=== PATIENT | male | born 1945 | race Two or more races ===

== ENCOUNTER 2023-03-24 11:14 | Inpatient (IN) | payer MEDICARE, OTHER ==
[2023-03-24] MEDS ORDERED: SODIUM CHLORIDE 0.9% 500 ML 500 ML IV STA (11:19)
--- NOTE | 2023-03-24 11:25 | ED ---
General Adult HPI - General Stated complaint: Syncope Time Seen by Provider: 03/24/23 11:14 Source: patient, RN notes reviewed, old records reviewed - History of Present Illness Initial comments: This 77-year-old male who presents emergency Department complaining that he passed out at the [employer]. Patient was sitting in a chair selling some anxiety his money passed out bystanders called EMS. Patient passed out a second time prior to arrival. According to EMS when they were transferring the patient to the stretcher he passed out a third time. Patient denies any chest pain difficulty breathing shortest breath per patient denies any headache patient denies numbness weakness. Patient denies any lightheadedness or dizziness. Patient states she's had no history of passing out. Patient denies any heart history. Patient states he is a diabetic. Patient denies any other symptoms at this time and in fact he states he feels pretty good right now lying in bed. - Related Data Allergies Allergy/AdvReac Type Severity Reaction Status Date / Time hay fever Allergy Unknown Uncoded 03/24/23 11:24 Childhood Review of Systems ROS Statement: Those systems with pertinent positive or pertinent negative responses have been documented in the HPI. ROS Other: All systems not noted in ROS Statement are negative. General Exam - General Exam Comments Initial Comments: GENERAL: Patient is well-developed and well-nourished. Patient is nontoxic and well- hydrated and is in no acute distress. ENT: Neck is soft and supple. No significant lymphadenopathy is noted. Oropharynx is clear. Moist mucous membranes. Neck has full range of motion without eliciting any pain. EYES: The sclera were anicteric and conjunctiva were pink and moist. Extraocular movements were intact and pupils were equal round and reactive to light. Eye lids were unremarkable. PULMONARY: Unlabored respirations. Good breath sounds bilaterally. No audible rales rhonchi or wheezing was noted. CARDIOVASCULAR: Patient is bradycardic at 40 beats minute ABDOMEN: Soft and nontender with normal bowel sounds. SKIN: Skin is clear with no lesions or rashes and otherwise unremarkable. NEUROLOGIC: Patient is alert and oriented x3. Cranial nerves II through XII are grossly intact. Motor and sensory are also intact. Normal speech, volume and content. Symmetrical smile. MUSCULOSKELETAL: Normal extremities with adequate strength and full range of motion. LYMPHATICS: No significant lymphadenopathy is noted PSYCHIATRIC: Normal psychiatric evaluation. 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 EKG shows a ventricular rhythm at 35 bpm QRS is a 58 QT interval is 541 and QTC is 443. Patient's EKG shows no ST segment elevation or depression Was pt. sent in by a medical professional or institution (, PA, STRUCTURAL DRAFTSMAN, urgent care, hospital, or retirement...) When possible be specific @ -No Did you speak to anyone other than the patient for history (EMS, parent, family, police, friend...)? What history was obtained from this source @ -EMS gave us the history because the patient was unable to because he had passed out 3 times Did you review nursing and triage notes (agree or disagree)? Why? @ -I reviewed and agree with nursing and triage notes Were old charts reviewed (outside hosp., previous admission, EMS record, old EKG, old radiological studies, urgent care reports/EKG's, retirement records)? Report findings @ -I reviewed prior charts prior lab work on the patient Differential Diagnosis (chest pain, altered mental status, abdominal pain women, abdominal pain men, vaginal bleeding, weakness, fever, dyspnea, syncope, headache, dizziness, GI bleed, back pain, seizure, CVA, palpatations, mental health, musculoskeletal)? @ -Differential Syncope: Valvular disease, hypertrophic cardiomyopathy, pulmonary embolism, tamponade, tachycardia, bradycardia, WA, hypovolemia, hemorrhage, dissection, anemia, intracranial hemorrhage, seizure, hypoglycemia, carbon monoxide poisoning, this is not meant to be an all-inclusive list. EKG interpreted by me (3pts min.). @ -As above X-rays interpreted by me (1pt min.). @ -Chest x-ray shows no significant acute abnormality CT interpreted by me (1pt min.). @ -None done U/S interpreted by me (1pt. min.). @ -None done What testing was considered but not performed or refused? (CT, X-rays, U/S, labs)? Why? @ -None What meds were considered but not given or refused? Why? @ -None Did you discuss the management of the patient with other professionals (professionals i.e. Dr., PA, STRUCTURAL DRAFTSMAN, lab, RT, psych nurse, social worker assistant, program counselor, teacher, sheriff's officer, case management social worker)? Give summary @ -I spoke with the [facility] see agreed to admit the patient. I spoke with Dr. Murrieta he agreed to take the patient to the [facility] for a temporary pacemaker Was smoking cessation discussed for >3mins.? @ -No Was critical care preformed (if so, how long)? @ -No Were there social determinants of health that impacted care today? How? (Homelessness, low income, unemployed, alcoholism, drug addiction, transportation, low edu. Level, literacy, decrease access to med. care, halfway, rehab)? @ -No Was there de-escalation of care discussed even if they declined (Discuss DNR or withdrawal of care, Hospice)? DNR status @ -No What co-morbidities impacted this encounter? (DM, HTN, Smoking, COPD, CAD, Cancer, CVA, ARF, Chemo, Hep., AIDS, mental health diagnosis, sleep apnea, morbid obesity)? @ -None Was patient admitted / discharged? Hospital course, mention meds given and route, prescriptions, significant lab abnormalities, going to OR and other pertinent info. @ -Patient's heart rate remained between 35 and 40 patient was not hypotensive while he was in the emergency department and felt at his baseline as long she was lying down. Undiagnosed new problem with uncertain prognosis? @ -No Drug Therapy requiring intensive monitoring for toxicity (Heparin, Nitro, Insulin, Cardizem)? @ -No Were any procedures done? @ -No Diagnosis/symptom? @ -Symptomatic bradycardia Acute, or Chronic, or Acute on Chronic? @ -Acute Uncomplicated (without systemic symptoms) or Complicated (systemic symptoms)? @ -Complicated Side effects of treatment? @ -No Exacerbation, Progression, or Severe Exacerbation? @ -No Poses a threat to life or bodily function? How? (Chest pain, [place], [place], pneumonia, PE, COPD, DKA, ARF, appy, cholecystitis, CVA, Diverticulitis, Homicidal, Suicidal, threat to staff... and all critical care pts) @ -Yes this can lead to poor perfusion and an organ dysfunction Diagnosis/symptom? @ -Syncope Acute, or Chronic, or Acute on Chronic? @ -Acute Uncomplicated (without systemic symptoms) or Complicated (systemic symptoms)? @ -Complicated Side effects of treatment? @ -none Exacerbation, Progression, or Severe Exacerbation] @ -no Poses a threat to life or bodily function? @ -no - Lab Data Result diagrams: 03/24/23 11:26 03/24/23 11:26 Lab Results 03/24/23 03/24/23 03/24/23 Range/Units 11:26 11:26 11:26 WBC 6.9 (3.8-10.6) k/uL RBC 4.07 L (4.30-5.90) m/uL Hgb 13.6 (13.0-17.5) gm/dL Hct 41.3 (39.0-53.0) % MCV 101.4 H (80.0-100.0) fL MCH 33.3 (25.0-35.0) pg MCHC 32.9 (31.0-37.0) g/dL RDW 12.3 (11.5-15.5) % Plt Count 159 (150-450) k/uL MPV 8.7 Neutrophils % 71 % Lymphocytes % 18 % Monocytes % 6 % Eosinophils % 3 % Basophils % 0 % Neutrophils # 4.9 (1.3-7.7) k/uL Lymphocytes # 1.2 (1.0-4.8) k/uL Monocytes # 0.4 (0-1.0) k/uL Eosinophils # 0.2 (0-0.7) k/uL Basophils # 0.0 (0-0.2) k/uL PT 10.2 (9.0-12.0) sec INR 1.0 (<1.2) APTT 22.6 (22.0-30.0) sec Sodium 139 (137-145) mmol/L Potassium 4.1 (3.5-5.1) mmol/L Chloride 102 (98-107) mmol/L Carbon Dioxide 28 (22-30) mmol/L Anion Gap 9 mmol/L BUN 22 H (9-20) mg/dL Creatinine 1.21 (0.66-1.25) mg/dL Est GFR (CKD-EPI)AfAm 67 (>60 ml/min/1.73 sqM) Est GFR (CKD-EPI)NonAf 58 (>60 ml/min/1.73 sqM) Glucose 220 H (74-99) mg/dL Calcium 8.7 (8.4-10.2) mg/dL Magnesium 2.2 (1.6-2.3) mg/dL Total Bilirubin 0.5 (0.2-1.3) mg/dL AST 21 (17-59) U/L ALT 15 (4-49) U/L Alkaline Phosphatase 59 (38-126) U/L Total Protein 6.0 L (6.3-8.2) g/dL Albumin 3.6 (3.5-5.0) g/dL Disposition Clinical Impression: Symptomatic bradycardia, Syncope Disposition: ADMITTED IP TO THIS [facility] Referrals: Nonstaff,Physician [REFERRING] - 1-2 days Time of Disposition: 12:12
[2023-03-24 11:45] LABS: Basophils % (A) 0 %; Eosinophils # (A) 0.2 k/uL (0-0.7); Eosinophils % (A) 3 %; HCT 41.3 % (39.0-53.0); HGB 13.6 gm/dL (13.0-17.5); Lymphocytes # (A) 1.2 k/uL (1.0-4.8); Lymphocytes % (A) 18 %; MCH 33.3 pg (25.0-35.0); MCHC 32.9 g/dL (31.0-37.0); MCV 101.4 fL (80.0-100.0); Mean Platelet Volume 8.7; Monocytes # (A) 0.4 k/uL (0-1.0); Monocytes % (A) 6 %; Neutrophils # (A) 4.9 k/uL (1.3-7.7); Neutrophils % (A) 71 %; Platelet Count 159 k/uL (150-450); RBC 4.07 m/uL (4.30-5.90); RDW 12.3 % (11.5-15.5); WBC 6.9 k/uL (3.8-10.6)
[2023-03-24 12:00] LABS: Partial Thromboplastin Time 22.6 sec (22.0-30.0); Prothrombin Time 10.2 sec (9.0-12.0)
--- NOTE | 2023-03-24 12:03 | XR ---
EXAMINATION TYPE: XR chest 2V DATE OF EXAM: 03/24/2023 11:57 AM CLINICAL INDICATION:Male, 77 years old with history of dysrhythmia; COMPARISON: None TECHNIQUE: XR chest 2V Frontal and lateral views of the chest. FINDINGS: Lungs/Pleura: There is no evidence of pleural effusion, focal consolidation, or pneumothorax. Pulmonary vascularity: Unremarkable. Heart/mediastinum: Cardiomediastinal silhouette is enlarged and stable. Musculoskeletal: No acute osseous pathology. IMPRESSION: Cardiomegaly and mild pulmonary vascular congestion. Correlate with BNP for congestive heart failure.
[2023-03-24 12:07] LABS: ALT 15 U/L (4-49); AST 21 U/L (17-59); African American GFR (CKD) 67 (>60 ml/min/1.73 sqM); Albumin 3.6 g/dL (3.5-5.0); Alkaline Phosphatase 59 U/L (38-126); Anion Gap 9 mmol/L; Blood Urea Nitrogen 22 mg/dL (9-20); Calcium 8.7 mg/dL (8.4-10.2); Carbon Dioxide 28 mmol/L (22-30); Chloride 102 mmol/L (98-107); Glucose 220 mg/dL (74-99); Magnesium 2.2 mg/dL (1.6-2.3); Non-African American GFR(CKD) 58 (>60 ml/min/1.73 sqM); Potassium 4.1 mmol/L (3.5-5.1); Sodium 139 mmol/L (137-145); Total Bilirubin 0.5 mg/dL (0.2-1.3)
[2023-03-24] MEDS ORDERED: LIDOCAINE 1% INJ 10MG/ML (20 ML MDV) ONE (12:16)
[2023-03-24] MEDS ORDERED: SODIUM CHLORIDE 0.9% 1,000 ML IV ONE (12:27)
[2023-03-24] MEDS ORDERED: LIDOCAINE 1% INJ 10MG/ML (20 ML MDV) SQ ONE ×2 (12:39→12:40)
[2023-03-24] MEDS ORDERED: MIDAZOLAM 2 MG/2 ML VIAL IVP ONE (12:40)
--- NOTE | 2023-03-24 12:54 | P.PCN ---
Date of Procedure: 03/24/23 Operative Findings: Temporary pacemaker placement Performing physician Kb Murrieta M.D. Procedure performed 1. Successful placement of a transvenous venous temporary pacemaker in the RV 2. Ultrasound-guided access of the right common femoral vein Indication Severe bradycardia presented as syncope in this 77-year-old gentleman Approach Right common femoral vein Complication None Level of sedation Moderate sedation length of 10 minutes Procedure description After obtaining an informed consent the patient was brought to the cardiac wastewater analyst lab analyst. The right common femoral artery was cannulated using micropuncture technique under ultrasound guidance the micropuncture wire passed easily then I placed a 6-Guamanian 11 cm sheath in the right common femoral vein. Under fluoroscopy guidance the pacemaker wire with balloon tip was advanced all the way to the right ventricle and subsequently the balloon was deflated. Then the pacemaker was placed as a setup of 60 bpm and 2.5 of AMP. The patient tolerated the procedure very well Postprocedure management Hold any AV chapo xochitl agents Monitor the patient for the next 24-48 hours Consider permanent pacemaker if the patient remains bradycardic
--- NOTE | 2023-03-24 13:00 | P.CRDCN ---
History of Present Illness Consult date: 03/24/23 Chief complaint: Syncope History of present illness: The patient is a pleasant 77-year-old gentleman was no significant past medical history of any coronary artery disease or congestive heart failure or any cardiac arrhythmia and the perceived by a consumer electronics merchandiser in the past was brought to the hospital by ambulance after he did have an episode of syncope. The patient was at the [employer] earlier today when he was sitting on the chair and suddenly he lost his consciousness with no prodromal symptoms. He stated that he did have similar episodes 2 weeks ago. Ambulance was called and on the way to the hospital he did have another episode of syncope. No associated or prodromal symptoms. No chest pain or chest discomfort and no shor tness of breath and no dizziness or lightheadedness and no feeling of heart racing or fluttering or presyncope or syncope. He underwent further workup in the emergency department. The first troponin came in to be normal. The EKG showed what it seems to be junctional rhythm with RBBB morphology and heart rate in the 30s. I could not appreciate any P waves. The rest of the blood work including CBC and BNP came in to be unremarkable. TSH came in to be unremarkable. At home he was not on any AV chapo xochitl agents. With that being sedated the patient was brought to cardiac quality control lab tech where he underwent successful placement of transvenous temporary pacemaker from right femoral vein. He would be in the intensive care unit. We'll monitor the heart rate for the next 24-48 hours and avoid any AV chapo xochitl agents and obtain an echocardiogram. The examination is remarkable for stable blood pressure with a bradycardia and systolic murmur at the right and left upper sternal border Assessment Symptomatic bradycardia Syncope secondary to bradycardia Junctional rhythm with RBBB morphology Plan Avoid any AV chapo xochitl agents Obtain an echocardiogram was Doppler Thyroid dysfunction has been ruled out Monitor the electrolytes Consider permanent pacemaker if the patient remains bradycardic Past Medical History Past Medical History: Diabetes Mellitus History of Any Multi-Drug Resistant Organisms: None Reported Past Surgical History: No Surgical Hx Reported Past Psychological History: No Psychological Hx Reported Smoking Status: Never smoker Past Alcohol Use History: None Reported Medications and Allergies Allergies Allergy/AdvReac Type Severity Reaction Status Date / Time hay fever Allergy Unknown Uncoded 03/24/23 11:24 Childhood Physical Exam Vitals: Vital Signs Temp Pulse Pulse Resp BP Pulse Ox 03/24/23 12:15 32 L 20 115/65 95 03/24/23 11:29 35 L 03/24/23 11:16 96.9 F L 35 L 20 134/64 95 Intake and Output 03/23/23 03/24/23 03/24/23 22:59 06:59 14:59 Intake Total 100 Balance 100 Intake: IV 100 Other: Weight 89.811 kg Results 03/24/23 11:26 03/24/23 11:26 Cardiac Enzymes 03/24/23 03/24/23 Range/Units 11:26 11:26 AST 21 (17-59) U/L Troponin I <0.012 (0.000-0.034) ng/mL Coagulation 03/24/23 Range/Units 11:26 PT 10.2 (9.0-12.0) sec APTT 22.6 (22.0-30.0) sec CBC 03/24/23 Range/Units 11:26 WBC 6.9 (3.8-10.6) k/uL RBC 4.07 L (4.30-5.90) m/uL Hgb 13.6 (13.0-17.5) gm/dL Hct 41.3 (39.0-53.0) % Plt Count 159 (150-450) k/uL Comprehensive Metabolic Panel 03/24/23 Range/Units 11:26 Sodium 139 (137-145) mmol/L Potassium 4.1 (3.5-5.1) mmol/L Chloride 102 (98-107) mmol/L Carbon Dioxide 28 (22-30) mmol/L BUN 22 H (9-20) mg/dL Creatinine 1.21 (0.66-1.25) mg/dL Glucose 220 H (74-99) mg/dL Calcium 8.7 (8.4-10.2) mg/dL AST 21 (17-59) U/L ALT 15 (4-49) U/L Alkaline Phosphatase 59 (38-126) U/L Total Protein 6.0 L (6.3-8.2) g/dL Albumin 3.6 (3.5-5.0) g/dL Intake and Output 03/23/23 03/24/23 03/24/23 22:59 06:59 14:59 Intake Total 100 Balance 100 Intake: IV 100 Other: Weight 89.811 kg Patient Weight 03/25/23 06:59 Weight 89.811 kg 03/24/23 11:26 03/24/23 11:26
[2023-03-24] MEDS: SODIUM CHLORIDE 0.9% 1,000 ML IV SCH (13:10)
[2023-03-24 13:19] LABS: Glucose,Whole Blood 160 mg/dL (70-110)
[2023-03-24] MEDS ORDERED: MELATONIN 3 MG TABLET PO PRN (14:23)
[2023-03-24] MEDS ORDERED: MAG HYDROX/AL HYDROX/SIMETH 30 ML CUP PO PRN (14:23)
[2023-03-24] MEDS ORDERED: traMADol 50 MG TAB PO PRN (14:23)
[2023-03-24] MEDS ORDERED: NALOXONE 0.4 MG/ML 1 ML VIAL IV PRN (14:23)
[2023-03-24] MEDS ORDERED: ACETAMINOPHEN TAB 325 MG TAB PO PRN (14:23)
[2023-03-24] MEDS ORDERED: DEXTROSE 50% SYRINGE 50 ML IVP PRN ×2 (14:50)
--- NOTE | 2023-03-24 14:54 | P.HPIM ---
History of Present Illness H&P Date: 03/24/23 Chief Complaint: Syncopal episode * 77-year-old gentleman with past medical history significant for diabetes mellitus presents to the emergency department after a syncopal episode at [employer]. Patient had multiple episodes of syncope while at [employer] and EMS was called and patient was transferred to the emergency for further evaluation. Patient had no warning signs prior to passing out. Patient states he had similar episode a few days back. Patient denied any associated chest pain, shortness of breath, lightheadedness, palpitations or racing of the heart prior to passing out. * Workup initiated in ER included troponin which was normal, EKG obtained showed junctional rhythm with heart rate in 30s * Serum chemistry included normal CBC and see basic metabolic panel. TSH was within normal limits as well * Cardiology was contacted from ER and patient was emergently taken to [facility] for assessment of transvenous temporary pacer through right femoral vein * Patient was reassessed in medical ICU postprocedure, patient alert and oriented 4, daughter at bedside per daughter patient did have a little slurred speech. Patient does not have any other focal deficit. We will do a CT head to rule out acute intracranial process REVIEW OF SYSTEMS: Syncopal episode loss of consciousness CONSTITUTIONAL: No fever, no malaise, no fatigue. HEENT: No recent visual problems or hearing problems. Denied any sore throat. CARDIOVASCULAR: No chest pain, orthopnea, PND, no palpitations, no syncope. PULMONARY: No shortness of breath, no cough, no hemoptysis. GASTROINTESTINAL: No diarrhea, no nausea, no vomiting, no abdominal pain. NEUROLOGICAL: No headaches, no weakness, no numbness. HEMATOLOGICAL: Denies any bleeding or petechiae. GENITOURINARY: Denies any burning micturition, frequency, or urgency. MUSCULOSKELETAL/RHEUMATOLOGICAL: Denies any joint pain, swelling, or any muscle pain. ENDOCRINE: Denies any polyuria or polydipsia. PHYSICAL EXAMINATION: GENERAL: The patient is alert and oriented x3, HEENT: Pupils are round and equally reacting to light. EOMI. CARDIOVASCULAR: S1 and S2 present. No murmurs, rubs, or gallops. PULMONARY: Chest is clear to auscultation, no wheezing or crackles. ABDOMEN: Soft, nontender, nondistended, normoactive bowel sounds. No palpable organomegaly. MUSCULOSKELETAL: No joint swelling or deformity. EXTREMITIES: No cyanosis, clubbing, or pedal edema. NEUROLOGICAL: Gross neurological examination did not reveal any focal deficits. Face is symmetrical extraocular movement intact no garbled speech noted SKIN: No rashes. Past Medical History Past Medical History: Diabetes Mellitus History of Any Multi-Drug Resistant Organisms: None Reported Past Surgical History: No Surgical Hx Reported Past Psychological History: No Psychological Hx Reported Smoking Status: Never smoker Past Alcohol Use History: None Reported Medications and Allergies Allergies Allergy/AdvReac Type Severity Reaction Status Date / Time hay fever Allergy Unknown Uncoded 03/24/23 11:24 Childhood Physical Exam Vitals: Vital Signs Temp Pulse Pulse Resp BP Pulse Ox 03/24/23 12:15 32 L 20 115/65 95 03/24/23 11:29 35 L 03/24/23 11:16 96.9 F L 35 L 20 134/64 95 Intake and Output 03/23/23 03/24/23 03/24/23 22:59 06:59 14:59 Intake Total 100 Balance 100 Intake: IV 100 Other: Weight 89.811 kg Results CBC & Chem 7: 03/24/23 11:26 03/24/23 11:26 Labs: Abnormal Lab Results - Last 24 Hours (Table) 03/24/23 03/24/23 03/24/23 Range/Units 11:26 11:26 13:18 RBC 4.07 L (4.30-5.90) m/uL MCV 101.4 H (80.0-100.0) fL BUN 22 H (9-20) mg/dL Glucose 220 H (74-99) mg/dL POC Glucose (mg/dL) 160 H (70-110) mg/dL Total Protein 6.0 L (6.3-8.2) g/dL Assessment and Plan Assessment: Assessment and plan Syncopal episode secondary to bradycardia Junctional rhythm noted upon admission Diabetes mellitus type 2 * Consultations obtained from cardiology, patient is status post transvenous pacemaker placement * Patient transferred to ICU for close monitoring, continue telemetry monitoring, optimize electrolytes potassium and magnesium * Avoid AV chapo blocking agents * In regards to diabetes mellitus Accu-Cheks before meals at bedtime continue patient on correctional insulin, Lantus on hold to avoid hypoglycemia * CT head ordered to rule out intracranial process * CODE STATUS full code * Lovenox for DVT prophylaxis
--- NOTE | 2023-03-24 17:04 | CT ---
EXAMINATION TYPE: CT brain wo con DATE OF EXAM: 03/24/2023 COMPARISON: None HISTORY: ams, syncope CT DLP: 1130.4 mGycm Automated exposure control for dose reduction was used. FINDINGS: The ventricles, basal cisterns and sulci over the convexities are mildly enlarged but appropriate for the patient's age. No abnormal density is seen throughout the brain parenchyma and there is no acute intra or extra-axia l hemorrhage. The posterior fossa including the brainstem, fourth ventricle and cerebellar pontine angles are gross ly normal. The intraorbital contents appear normal and symmetric. Visualized paranasal sinuses and mastoid air cells are well aerated IMPRESSION: NO ACUTE BLEED OR MASS EFFECT. NO SIGNIFICANT ABNORMALITY SEEN.
[2023-03-24 17:47] LABS: Glucose,Whole Blood 129 mg/dL (70-110)
[2023-03-24] MEDS: INSULIN ASPART (NovoLOG) 100 UNIT/ML VIAL SQ SCH ×2 (18:10→20:23)
--- NOTE | 2023-03-24 19:13 | P.GSCN ---
History of Present Illness Consult date: 03/24/23 History of present illness: 77-year-old gentleman who had a syncopal episode today was brought in the hospital. He is found to be in third-degree heart block. Patient is at bedrest in the ICU and unable to urinate. The nursing staff has attempted to pass a catheter and has failed. We are asked see the patient. The patient's interviewed at the bedside and denies previous urologic problems. There's been no hematuria or dysuria infections and incontinence catheters problems with urination. He has never seen a urologist before Review of Systems All systems: negative - Constitutional Denies fever, Denies weight loss - EENT Eyes: denies blurred vision Ears, nose, mouth and throat: Denies dysphagia - Cardiovascular Denies chest pain, Denies shortness of breath - Respiratory Denies cough, Denies 7 - Gastrointestinal Reports as per HPI - Genitourinary Denies dysuria, Denies hematuria - Integumentary Denies rash, Denies unusual bruising - Neurological Denies headaches, Denies syncope - Hematologic/Lymphatic Denies easy bleeding, Denies easy bruising Past Medical History Past Medical History: Diabetes Mellitus History of Any Multi-Drug Resistant Organisms: None Reported Past Surgical History: No Surgical Hx Reported Past Psychological History: No Psychological Hx Reported Smoking Status: Never smoker Past Alcohol Use History: None Reported - Past Family History Father Additional Family Medical History / Comment(s): Brain tumor behind his eye, passed in early 70s Mother Additional Family Medical History / Comment(s): passed in her 90s Medications and Allergies Home Medications Medication Instructions Recorded Confirmed Type Cholecalciferol [Vitamin D3 (25 50 mcg PO DAILY 03/24/23 03/24/23 History Mcg = 1000 Iu)] Glimepiride [Amaryl] 4 mg PO BID 03/24/23 03/24/23 History Insulin Glargine,Hum.rec.anlog 10 units SQ HS 03/24/23 03/24/23 History [Lantus Solostar Pen] Linagliptin [Tradjenta] 5 mg PO DAILY 03/24/23 03/24/23 History Pentoxifylline [TRENtal] 400 mg PO TID-W/MEALS 03/24/23 03/24/23 History Rosuvastatin Calcium 5 mg PO DAILY 03/24/23 03/24/23 History Timolol 0.5% Ophth Gel Forming 1 applic RIGHT EYE DAILY 03/24/23 03/24/23 History [Timoptic-Xe 0.5% Gel Form] Allergies Allergy/AdvReac Type Severity Reaction Status Date / Time hay fever Allergy Unknown Uncoded 03/24/23 15:20 Childhood Surgical - Exam Vital Signs Temp Pulse Resp BP Pulse Ox 96.9 F L 35 L 20 134/64 95 03/24/23 11:16 03/24/23 11:16 03/24/23 11:16 03/24/23 11:16 03/24/23 11:16 - General well developed, well nourished, no distress - Eyes normal ocular movement, no icteric - ENT no hearing loss, no congestion - Neck no masses, trachea midline - Respiratory normal respiratory effort, clear to auscultation - Abdomen Abdomen: soft, non tender, no guarding, no rigid, no rebound - Integumentary no rash, no abnormal pigmentation - Neurologic no disoriented, no combative - Psychiatric oriented to time, oriented to person, oriented to place, speech is normal, memory intact Results - Labs 03/24/23 11:26 03/24/23 11:26 Abnormal Lab Results - Last 24 Hours (Table) 03/24/23 03/24/23 03/24/23 Range/Units 11:26 11:26 13:18 RBC 4.07 L (4.30-5.90) m/uL MCV 101.4 H (80.0-100.0) fL BUN 22 H (9-20) mg/dL Glucose 220 H (74-99) mg/dL POC Glucose (mg/dL) 160 H (70-110) mg/dL Total Protein 6.0 L (6.3-8.2) g/dL 03/24/23 Range/Units 17:46 RBC (4.30-5.90) m/uL MCV (80.0-100.0) fL BUN (9-20) mg/dL Glucose (74-99) mg/dL POC Glucose (mg/dL) 129 H (70-110) mg/dL Total Protein (6.3-8.2) g/dL Diabetes panel 03/24/23 Range/Units 11:26 Sodium 139 (137-145) mmol/L Potassium 4.1 (3.5-5.1) mmol/L Chloride 102 (98-107) mmol/L Carbon Dioxide 28 (22-30) mmol/L BUN 22 H (9-20) mg/dL Creatinine 1.21 (0.66-1.25) mg/dL Glucose 220 H (74-99) mg/dL Calcium 8.7 (8.4-10.2) mg/dL AST 21 (17-59) U/L ALT 15 (4-49) U/L Alkaline Phosphatase 59 (38-126) U/L Total Protein 6.0 L (6.3-8.2) g/dL Albumin 3.6 (3.5-5.0) g/dL Thyroid panel 03/24/23 Range/Units 11:26 TSH 2.880 (0.465-4.680) mIU/L Calcium panel 03/24/23 Range/Units 11:26 Calcium 8.7 (8.4-10.2) mg/dL Albumin 3.6 (3.5-5.0) g/dL Pituitary panel 03/24/23 Range/Units 11:26 Sodium 139 (137-145) mmol/L Potassium 4.1 (3.5-5.1) mmol/L Chloride 102 (98-107) mmol/L Carbon Dioxide 28 (22-30) mmol/L BUN 22 H (9-20) mg/dL Creatinine 1.21 (0.66-1.25) mg/dL Glucose 220 H (74-99) mg/dL Calcium 8.7 (8.4-10.2) mg/dL TSH 2.880 (0.465-4.680) mIU/L Adrenal panel 03/24/23 Range/Units 11:26 Sodium 139 (137-145) mmol/L Potassium 4.1 (3.5-5.1) mmol/L Chloride 102 (98-107) mmol/L Carbon Dioxide 28 (22-30) mmol/L BUN 22 H (9-20) mg/dL Creatinine 1.21 (0.66-1.25) mg/dL Glucose 220 H (74-99) mg/dL Calcium 8.7 (8.4-10.2) mg/dL Total Bilirubin 0.5 (0.2-1.3) mg/dL AST 21 (17-59) U/L ALT 15 (4-49) U/L Alkaline Phosphatase 59 (38-126) U/L Total Protein 6.0 L (6.3-8.2) g/dL Albumin 3.6 (3.5-5.0) g/dL Assessment and Plan Assessment: Impression: 3rd heart block with intensive care unit stay. Urinary retention and inability pass catheter Recommendations catheter passage.
--- NOTE | 2023-03-24 19:14 | P.PCN ---
Date of Procedure: 03/24/23 Preoperative Diagnosis: Urine retention Postoperative Diagnosis: Same Procedure(s) Performed: Difficult catheter placement with 14-Trinidadian coud Anesthesia: none Surgeon: Cl Genao Pathology: none sent Condition: stable Disposition: ICU Indications for Procedure: The patient is in the ICU and heart block. He is in urine retention. The nursing staff could not place a catheter Description of Procedure: The patient is prepped and draped sterilely. I first gently pass a 16-Trinidadian De Anda catheter and meet resistance in the bulbar urethra. It is mostly because he is probably having sphincter spasm as this is hurting him significantly. I then have the nurse assisting me, patient down. I then gently passed a 14- Trinidadian coud-tip catheter in the bladder with clear urine return Impression the difficulty catheter placement is due to sphincter spasm due to patient anxiety and discomfort. I was able to get a catheter in. He is on tamsulosin. The catheter can be removed when he is ambulating. He should urinate without difficulty.
[2023-03-24 20:12] LABS: Glucose,Whole Blood 124 mg/dL (70-110)
[2023-03-24] MEDS: NYSTATIN 100,000 UNIT/GM POWD 15 GM TOPICAL SCH (20:49)
[2023-03-24] MEDS: TAMSULOSIN 0.4 MG CAP.ER.24H PO SCH (20:49)
[2023-03-25 05:27] LABS: Basophils % (A) 0 %; Eosinophils # (A) 0.1 k/uL (0-0.7); Eosinophils % (A) 2 %; HCT 42.6 % (39.0-53.0); HGB 14.5 gm/dL (13.0-17.5); Lymphocytes # (A) 0.8 k/uL (1.0-4.8); Lymphocytes % (A) 11 %; MCHC 33.9 g/dL (31.0-37.0); MCV 100.1 fL (80.0-100.0); Monocytes # (A) 0.5 k/uL (0-1.0); Monocytes % (A) 6 %; Neutrophils # (A) 6.1 k/uL (1.3-7.7); Neutrophils % (A) 80 %; Platelet Count 131 k/uL (150-450); RBC 4.26 m/uL (4.30-5.90); RDW 12.4 % (11.5-15.5); WBC 7.6 k/uL (3.8-10.6)
[2023-03-25 05:33] LABS: African American GFR (CKD) 81 (>60 ml/min/1.73 sqM); Anion Gap 5 mmol/L; Blood Urea Nitrogen 19 mg/dL (9-20); Calcium 8.7 mg/dL (8.4-10.2); Carbon Dioxide 28 mmol/L (22-30); Chloride 106 mmol/L (98-107); Glucose 108 mg/dL (74-99); Non-African American GFR(CKD) 70 (>60 ml/min/1.73 sqM); Potassium 3.9 mmol/L (3.5-5.1); Sodium 139 mmol/L (137-145)
[2023-03-25] MEDS: INSULIN ASPART (NovoLOG) 100 UNIT/ML VIAL SQ SCH ×4 (06:40→20:23)
[2023-03-25] MEDS: SODIUM CHLORIDE 0.9% 1,000 ML IV SCH (08:00)
--- NOTE | 2023-03-25 08:57 | P.PN ---
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 The patient was at the [employer] earlier today when he was sitting on the chair and suddenly he lost his consciousness with no prodromal symptoms. He stated that he did have similar episodes 2 weeks ago. Ambulance was called and on the way to the hospital he did have another episode of syncope. No associated or prodromal symptoms. No chest pain or chest discomfort and no shortness of breath and no dizziness or lightheadedness and no feeling of heart racing or fluttering or presyncope or syncope. He underwent further workup in the emergency department. The first troponin came in to be normal. The EKG showed what it seems to be junctional rhythm with RBBB morphology and heart rate in the 30s. I could not appreciate any P waves. The rest of the blood work including CBC and BNP came in to be unremarkable. TSH came in to be unremarkable. At home he was not on any AV chapo xochitl agents. With that being sedated the patient was brought to cardiac lab tech where he underwent successful placement of transvenous temporary pacemaker from right femoral vein. He would be in the intensive care unit. We'll monitor the heart rate for the next 24-48 hours and avoid any AV chapo xochitl agents and obtain an echocardiogram. The examination is remarkable for stable blood pressure with a bradycardia and systolic murmur at the right and left upper sternal border 03/25/2023 The patient was seen and evaluated this morning. He is feeling better. As a matter of fact he is overriding the pacemaker was a resting heart rate appeared to be in the 70s. He is in sinus rhythm now. 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 We will perform a bedside EKG for confirmation. The echo is still pending. He is asymptomatic and he is hemodynamically stable. TSH was checked and came in to be unremarkable. Examination is remarkable for regular rhythm with a systolic murmur at the right upper sternal border Assessment Symptomatic bradycardia Syncope secondary to bradycardia Junctional rhythm with RBBB morphology Plan Continue avoiding any AV chapo xochitl agents Start the patient on amlodipine to treat the blood pressure Follow-up with the patient Objective - Vital Signs Vital signs: Vital Signs Temp 98.3 F 03/25/23 04:00 Pulse 66 03/25/23 07:00 Resp 12 03/25/23 07:00 BP 150/80 03/25/23 07:00 Pulse Ox 98 03/25/23 07:00 FiO2 Intake & Output 03/24/23 03/25/23 03/25/23 18:59 06:59 18:59 Intake Total 580 520 Output Total 575 1460 Balance 5 -940 Weight 89.3 kg 89 kg Intake: IV 340 520 .9 20 R femoral sheath 100 260 Invasive Line 1 20 Sodium Chloride 0.9% 1, 120 260 000 ml @ 20 mls/hr IV . Q24H [facility] Rx#:[id number] Oral 240 Output: Urine 575 1460 Other: Voiding Method Urinal Indwelling Catheter External Catheter # Bowel Movements 0 - Labs CBC & Chem 7: 03/25/23 04:51 03/25/23 04:51 Labs: Abnormal Lab Results - Last 24 Hours (Table) 03/24/23 03/24/23 03/24/23 Range/Units 11:26 11:26 13:18 RBC 4.07 L (4.30-5.90) m/uL MCV 101.4 H (80.0-100.0) fL Plt Count (150-450) k/uL Lymphocytes # (1.0-4.8) k/uL BUN 22 H (9-20) mg/dL Glucose 220 H (74-99) mg/dL POC Glucose (mg/dL) 160 H (70-110) mg/dL Total Protein 6.0 L (6.3-8.2) g/dL 03/24/23 03/24/23 03/25/23 Range/Units 17:46 20:11 04:51 RBC 4.26 L (4.30-5.90) m/uL MCV 100.1 H (80.0-100.0) fL Plt Count 131 L (150-450) k/uL Lymphocytes # 0.8 L (1.0-4.8) k/uL BUN (9-20) mg/dL Glucose (74-99) mg/dL POC Glucose (mg/dL) 129 H 124 H (70-110) mg/dL Total Protein (6.3-8.2) g/dL 03/25/23 Range/Units 04:51 RBC (4.30-5.90) m/uL MCV (80.0-100.0) fL Plt Count (150-450) k/uL Lymphocytes # (1.0-4.8) k/uL BUN (9-20) mg/dL Glucose 108 H (74-99) mg/dL POC Glucose (mg/dL) (70-110) mg/dL Total Protein (6.3-8.2) g/dL
[2023-03-25] MEDS: ENOXAPARIN 40 MG/0.4 ML SYRINGE SQ SCH (10:33)
[2023-03-25] MEDS: NYSTATIN 100,000 UNIT/GM POWD 15 GM TOPICAL SCH ×3 (10:33→20:03)
[2023-03-25] MEDS: TAMSULOSIN 0.4 MG CAP.ER.24H PO SCH (10:33)
[2023-03-25 10:42] LABS: Glucose,Whole Blood 157 mg/dL (70-110)
[2023-03-25] MEDS: amLODIPine 2.5 MG TAB PO SCH (10:47)
--- NOTE | 2023-03-25 11:00 | CA ---
Transthoracic Echo Report Name: Cl Up Age: 77 Gender: M : 1945 Exam Date: 03/24/2023 13:39 Exam Location: [facility] Ht (in): 70 Wt (lb): 198 Ordering Physician: Kb Murrieta MD ([id number]) Attending/Referring Phys: Voip Network Engineer Phyllis López RDCS Procedure CPT: Indications: Bradycardia Cardiac Hx: temporary pacemaker Technical Quality: Fair Contrast 1: Total Dose (mL): Contrast 2: Total Dose (mL): MEASUREMENTS (Male / Female) Normal Values 2D ECHO LV Diastolic Diameter PLAX 4.7 cm 4.2 - 5.9 / 3.9 - 5.3 cm LV Systolic Diameter PLAX 3.0 cm IVS Diastolic Thickness 1.5 cm 0.6 - 1.0 / 0.6 - 0.9 cm LVPW Diastolic Thickness 1.4 cm 0.6 - 1.0 / 0.6 - 0.9 cm LV Relative Wall Thickness 0.6 RV Internal Dim ED PLAX 3.2 cm LA Systolic Diameter LX 3.9 cm 3.0 - 4.0 / 2.7 - 3.8 cm LV Diastolic Volume MOD 4C 90.7 cm??? LV Systolic Volume MOD 4C 47.0 cm??? LV Ejection Fraction MOD 4C 48.2 % LV Cardiac Index MOD 4C 2016.6 cm???/min???m??? LV Diastolic Length 4C 7.5 cm LV Systolic Length 4C 5.8 cm M-MODE Aortic Root Diameter MM 3.6 cm MV E Point Septal Separation 1.2 cm AV Cusp Separation MM 1.9 cm DOPPLER AV Peak Velocity 106.4 cm/s AV Peak Gradient 4.5 mmHg MV Area PHT 6.8 cm??? Mitral E Point Velocity 101.6 cm/s Mitral A Point Velocity 34.6 cm/s Mitral E to A Ratio 2.9 MV Deceleration Time 111.4 ms TV Peak Velocity 151.1 cm/s FINDINGS Left Ventricle Left ventricular ejection fraction is estimated at 50-55 %. Left ventricular cavity size normal. Moderately increased septal wall thickness. Right Ventricle Normal right ventricular size. Unable to estimate the right ventricular systolic pressure. Right Atrium Normal right atrial size. Left Atrium Normal left atrial size. Mitral Valve Structurally normal mitral valve. Mitral annular calcification. Aortic Valve Trileaflet aortic valve. No aortic valve stenosis or regurgitation. Aortic valve sclerosis. Tricuspid Valve Structurally normal tricuspid valve. No tricuspid regurgitation. Pulmonic Valve No pulmonic regurgitation. Structurally normal pulmonic valve. Pericardium No pericardial effusion. Aorta Normal size aortic root and proximal ascending aorta. CONCLUSIONS Normal LVEF Aortic sclerosis Previewed by: Dr. Kb Murrieta MD (Electronically Signed) Final Date: 25 March 2023 10:59
[2023-03-25 11:34] LABS: Glucose,Whole Blood 147 mg/dL (70-110)
--- NOTE | 2023-03-25 12:23 | P.PN ---
Subjective Progress Note Date: 03/25/23 * 77-year-old gentleman with past medical history significant for diabetes mellitus presents to the emergency department after a syncopal episode at [facility]. Patient had multiple episodes of syncope while at [facility] and EMS was called and patient was transferred to the emergency for further evaluation. Patient had no warning signs prior to passing out. Patient states he had similar episode a few days back. Patient denied any associated chest pain, shortness of breath, lightheadedness, palpitations or racing of the heart prior to passing out. * Workup initiated in ER included troponin which was normal, EKG obtained showed junctional rhythm with heart rate in 30s * Serum chemistry included normal CBC and see basic metabolic panel. TSH was within normal limits as well * Cardiology was contacted from ER and patient was emergently taken to laborer adjustable steel joist for assessment of transvenous temporary pacer through right femoral vein * Patient was reassessed in medical ICU postprocedure, patient alert and oriented 4, daughter at bedside per daughter patient did have a little slurred speech. Patient does not have any other focal deficit. We will do a CT head to rule out acute intracranial process * 03/25: Patient seen and evaluated and bedside, heart rate remained stable, seen by cardiology. Patient noted to have urinary retention from his De Anda catheter placed. Urology consulted Objective - Vital Signs Vital signs: Vital Signs Temp 98.8 F 03/25/23 08:00 Pulse 73 03/25/23 11:00 Resp 17 03/25/23 11:00 BP 127/72 03/25/23 11:00 Pulse Ox 92 L 03/25/23 11:00 FiO2 Intake & Output 03/24/23 03/25/23 03/25/23 18:59 06:59 18:59 Intake Total 580 520 320 Output Total 575 1460 200 Balance 5 -940 120 Weight 89.3 kg 89 kg Intake: IV 340 520 80 .9 20 R femoral sheath 100 260 80 Invasive Line 1 20 Sodium Chloride 0.9% 1, 120 260 000 ml @ 20 mls/hr IV . Q24H [facility] Rx#:[id number] Oral 240 240 Output: Urine 575 1460 200 Other: Voiding Method Urinal Indwelling Catheter Indwelling Catheter External Catheter # Bowel Movements 0 - Exam PHYSICAL EXAMINATION: GENERAL: The patient is alert and oriented x3, not in any acute distress. Well developed, well nourished. HEENT: Pupils are round and equally reacting to light. EOMI. No scleral icterus. No conjunctival pallor. Normocephalic, atraumatic. No pharyngeal erythema. No thyromegaly. CARDIOVASCULAR: S1 and S2 present. Anticardiolipin improved. , Transvenous pacemaker place right groin access PULMONARY: Chest is clear to auscultation, no wheezing or crackles. ABDOMEN: Soft, nontender, nondistended, normoactive bowel sounds. No palpable organomegaly. MUSCULOSKELETAL: No joint swelling or deformity. EXTREMITIES: No cyanosis, clubbing, or pedal edema. NEUROLOGICAL: Gross neurological examination did not reveal any focal deficits. SKIN: No rashes. - Labs CBC & Chem 7: 03/25/23 04:51 03/25/23 04:51 Labs: Abnormal Lab Results - Last 24 Hours (Table) 03/24/23 03/24/23 03/24/23 Range/Units 13:18 17:46 20:11 RBC (4.30-5.90) m/uL MCV (80.0-100.0) fL Plt Count (150-450) k/uL Lymphocytes # (1.0-4.8) k/uL Glucose (74-99) mg/dL POC Glucose (mg/dL) 160 H 129 H 124 H (70-110) mg/dL Hemoglobin A1c (<=6.0) % 03/25/23 03/25/23 03/25/23 Range/Units 04:51 04:51 04:51 RBC 4.26 L (4.30-5.90) m/uL MCV 100.1 H (80.0-100.0) fL Plt Count 131 L (150-450) k/uL Lymphocytes # 0.8 L (1.0-4.8) k/uL Glucose 108 H (74-99) mg/dL POC Glucose (mg/dL) (70-110) mg/dL Hemoglobin A1c 6.9 H (<=6.0) % 03/25/23 03/25/23 Range/Units 10:41 11:33 RBC (4.30-5.90) m/uL MCV (80.0-100.0) fL Plt Count (150-450) k/uL Lymphocytes # (1.0-4.8) k/uL Glucose (74-99) mg/dL POC Glucose (mg/dL) 157 H 147 H (70-110) mg/dL Hemoglobin A1c (<=6.0) % Assessment and Plan Assessment: Assessment and plan Syncopal episode secondary to bradycardia Junctional rhythm noted upon admission Diabetes mellitus type 2 Urinary retention * Consultations obtained from cardiology, patient is status post transvenous pacemaker placement pod 1 * Continue in ICU for close monitoring, continue telemetry monitoring, optimize electrolytes potassium and magnesium * Avoid AV chapo blocking agents * In regards to diabetes mellitus Accu-Cheks before meals at bedtime, continue sliding scale insulin, Lantus and oral hypoglycemic * CT head negative for acute intracranial process * In regards to urinary retention urology consulted, trial of voiding ordered continue patient on Flomax * CODE STATUS full code * Lovenox for DVT prophylaxis
[2023-03-25] MEDS: PENTOXIFYLLINE 400 MG TABLET.ER PO SCH ×2 (13:00→16:47)
[2023-03-25 16:05] LABS: Glucose,Whole Blood 134 mg/dL (70-110)
[2023-03-25 16:51] LABS: Glucose,Whole Blood 152 mg/dL (70-110)
[2023-03-25 20:12] LABS: Glucose,Whole Blood 132 mg/dL (70-110)
[2023-03-25] MEDS: INSULIN DETEMIR (LEVEMIR) 100 UNIT/ML SYR SQ SCH (20:23)
[2023-03-25] MEDS ORDERED: GLIMEPIRIDE 4 MG TAB PO SCH (21:00)
[2023-03-26 05:56] LABS: HCT 41.8 % (39.0-53.0); HGB 14.1 gm/dL (13.0-17.5); MCHC 33.7 g/dL (31.0-37.0); MCV 100.8 fL (80.0-100.0); Mean Platelet Volume 8.2; Platelet Count 124 k/uL (150-450); RBC 4.14 m/uL (4.30-5.90); RDW 12.2 % (11.5-15.5); WBC 7.3 k/uL (3.8-10.6)
[2023-03-26 06:10] LABS: African American GFR (CKD) 75 (>60 ml/min/1.73 sqM); Anion Gap 8 mmol/L; Blood Urea Nitrogen 19 mg/dL (9-20); Calcium 8.5 mg/dL (8.4-10.2); Carbon Dioxide 26 mmol/L (22-30); Chloride 104 mmol/L (98-107); Glucose 108 mg/dL (74-99); Non-African American GFR(CKD) 65 (>60 ml/min/1.73 sqM); Potassium 3.7 mmol/L (3.5-5.1); Sodium 138 mmol/L (137-145)
[2023-03-26 06:43] LABS: Glucose,Whole Blood 106 mg/dL (70-110)
[2023-03-26] MEDS: INSULIN ASPART (NovoLOG) 100 UNIT/ML VIAL SQ SCH ×4 (06:54→21:24)
[2023-03-26] MEDS: PENTOXIFYLLINE 400 MG TABLET.ER PO SCH ×4 (06:55→18:15)
[2023-03-26] MEDS ORDERED: ceFAZolin 1 GM in SODIUM CHLORIDE 0.9% IRRIG BTL 250 ML IRRIGATION PRN (07:00)
[2023-03-26] MEDS: ENOXAPARIN 40 MG/0.4 ML SYRINGE SQ SCH (08:35)
[2023-03-26] MEDS: TIMOLOL 0.5% OPHTH DROPS 5 ML BTL RIGHT EYE SCH (08:39)
[2023-03-26] MEDS: TAMSULOSIN 0.4 MG CAP.ER.24H PO SCH (10:38)
[2023-03-26] MEDS: amLODIPine 2.5 MG TAB PO SCH (10:39)
[2023-03-26] MEDS: ATORVASTATIN 10 MG TAB PO SCH (10:39)
[2023-03-26] MEDS: NYSTATIN 100,000 UNIT/GM POWD 15 GM TOPICAL SCH ×3 (12:00→21:22)
[2023-03-26] MEDS: SODIUM CHLORIDE 0.9% 1,000 ML IV SCH ×3 (12:00→20:40)
[2023-03-26 12:31] LABS: Glucose,Whole Blood 95 mg/dL (70-110)
--- NOTE | 2023-03-26 14:36 | P.PN ---
Subjective Progress Note Date: 03/26/23 This is a 77-year-old gentleman admitted with recurrent syncope-the first episode approximately 2 weeks ago, symptomatic bradycardia, junctional rhythm with heart rate in the 30s. Heart rates currently in the 70s.MAps 90s to 110s. Echocardiogram reported normal LV function, aortic sclerosis. Transvenous pacer placed. Permanent pacemaker pending. Denies chest pain, palpitations or shortness of breath. Maintaining O2 sats in the high 90s on 2 L nasal cannula. Objective - Vital Signs Vital signs: Vital Signs Temp 98.0 F 03/26/23 12:00 Pulse 75 03/26/23 13:00 Resp 13 03/26/23 13:00 BP 142/85 03/26/23 13:00 Pulse Ox 97 03/26/23 13:00 FiO2 Intake & Output 03/25/23 03/26/23 03/26/23 18:59 06:59 18:59 Intake Total 950 230 220 Output Total 580 1060 380 Balance 370 -830 -160 Weight 86.6 kg Intake: IV 240 230 220 .9 20 R femoral sheath 220 220 120 Invasive Line 3 10 Invasive Line 4 10 10 Sodium Chloride 0.9% 1, 100 000 ml @ 50 mls/hr IV . Q20H [facility] Rx#:[id number] Oral 710 Output: Urine 580 1060 380 Other: Voiding Method Indwelling Catheter Indwelling Catheter Indwelling Catheter - Exam PHYSICAL EXAM: VITAL SIGNS: As above GENERAL: Alert and oriented 3, Sitting up in bed, no acute distress HEENT: Conjunctivae normal. eyes normal. NECK: No JVD. CARDIOVASCULAR: S1, S2 regular. Positive systolic murmur RESPIRATION: Breath sounds diminished in the bases. ABDOMEN: Soft, nontender . No guarding. +BS. LEGS: No edema. no swelling NERVOUS SYSTEM: Cranial N 2-12 grossly normal. No focal deficits. Strength and sensation grossly intact. Skin: Warm and dry, no rash - Labs CBC & Chem 7: 03/26/23 04:14 03/26/23 04:14 Labs: Abnormal Lab Results - Last 24 Hours (Table) 03/25/23 03/25/23 03/25/23 Range/Units 16:04 16:49 20:11 RBC (4.30-5.90) m/uL MCV (80.0-100.0) fL Plt Count (150-450) k/uL Glucose (74-99) mg/dL POC Glucose (mg/dL) 134 H 152 H 132 H (70-110) mg/dL 03/26/23 03/26/23 Range/Units 04:14 04:14 RBC 4.14 L (4.30-5.90) m/uL MCV 100.8 H (80.0-100.0) fL Plt Count 124 L (150-450) k/uL Glucose 108 H (74-99) mg/dL POC Glucose (mg/dL) (70-110) mg/dL Assessment and Plan Assessment: Syncope secondary to symptomatic bradycardia, status post TVP placement Junctional rhythm heart rate in the 30s on admission Acute renal failure secondary to the above, improving Urinary retention, coude' catheter placed per urology Diabetes mellitus, A1c 6.9 Obstructive sleep apnea uses CPAP Plan: Continue on current medication regime ,monitoring and symptomatic treatment.NPO, PPM pending. Continue avoiding AV chapo blocking agents. The impression and plan of care has been dictated as directed. : I performed a history and examination of this patient, discussed the same with the dictator. I agree with the dictator's note ,documented as a scribe. Any additional findings or plans will be noted.
[2023-03-26] MEDS ORDERED: IOPAMIDOL-370 100ML BTL INJ ONE (14:59)
[2023-03-26] MEDS ORDERED: LIDOCAINE 1% INJ 10MG/ML (20 ML MDV) ONE ×2 (15:00)
[2023-03-26] MEDS ORDERED: fentaNYL (PF) 50 MCG/ML 2 ML AMP ONE (15:00)
[2023-03-26] MEDS ORDERED: HEPARIN SODIUM 1,000 UN/ML (10ML VL) ONE (15:00)
[2023-03-26] MEDS: fentaNYL (PF) 50 MCG/ML 2 ML AMP IVP ONE ×2 (15:06→15:21)
[2023-03-26] MEDS: MIDAZOLAM 2 MG/2 ML VIAL IVP ONE ×2 (15:06→15:21)
[2023-03-26] MEDS ORDERED: SODIUM CHLORIDE 0.9% 1,000 ML IV ONE (15:12)
[2023-03-26] MEDS ORDERED: LIDOCAINE 1% INJ 10MG/ML (20 ML MDV) SQ ONE ×2 (15:21→15:25)
[2023-03-26] MEDS ORDERED: LIDOCAINE 1% INJ 10MG/ML (30 ML VIAL-PF) SQ ONE (15:21)
[2023-03-26 17:53] LABS: Glucose,Whole Blood 83 mg/dL (70-110)
[2023-03-26 21:22] LABS: Glucose,Whole Blood 132 mg/dL (70-110)
[2023-03-26] MEDS: INSULIN DETEMIR (LEVEMIR) 100 UNIT/ML SYR SQ SCH (21:23)
--- NOTE | 2023-03-26 22:09 | P.PCN ---
Description of Procedure: CARDIOLOGY PROCEDURE NOTE Instructor Warper: Dr. Alex Cho Procedure performed: Insertion dual chamber permanent pacemaker Site: Left subclavian Indications: Syncope, symptomatic bradycardia, junctional rhythm HR in the 30's, sick sinus syndrome Complications: None Blood Loss: Minimal Description of Procedure: After the risks, benefits, and alternatives of the above-mentioned procedure was explained in detail with the patient, informed consent was obtained. The patient was taken to the cardiac catheterization suite where the left subclavian area was sterily prepped and draped in the usual fashion. One percent lidocaine was used to anesthetize the left subclavian area. Twenty milliliters of Isoview 370 contrast was injected into the left antecubital vein to allow for direct visualization of the left subclavian vein under fluoroscopy. A 1.5 inch incision was made utilizing a #15 blade in the left subclavian site. Hemostasis was made complete. Electrocautery along with digital blunt dissection was utilized to dissect to the level of the pectoralis muscle fascia and create a pocket large enough to accommodate the generator. A thin walled micro puncuture needle was used to cannulate the left subclavian vein. A guide-wire was inserted through the needle into the vascular lumen under fluoroscopic guidance. The needle was removed. Another thin walled micr puncture needle was used to again cannulate the left subclavian vein. A guide-wire was inserted through the needle into the vascular lumen under fluoroscopic guidance. The needle was removed and both guide-wires were attached to the field. A venous sheath and dilator were advanced over the guidewire into the vascular lumen under fluoroscopic guidance. The dilator and guidewire were then removed. A right ventricular bipolar lead was inserted into the sheath and advanced under fluoroscopic guidance into the right ventricle under fluoroscopic guidance. There were inadequate sensing and pacing thresholds with the 52cm lead and unable to reach the apex and therefore this was withdrawn and a 58cm lead was used for the RV lead. Apical parameters were inadequate and therefore moved to a more septal position with improved parameters. Adequate sensing and pacing thresholds were achieved and the lead was screwed into place in the RV apical septum. The sheath was then torn away. The lead collar was advanced and anchored into place utilizing #0 silk suture. Next, another venous sheath and dilator were advanced under fluoroscopic guidance into the vascular lumen over the guidewire. After removal of the dilator and guidewire, the 52cm bipolar lead was inserted into this sheath and advanced under fluoroscopic guidance into the right atrium. The lead was positioned into the right atrial appendage 4 times with similar poor pacing thresholds. Repositioning was attempted a number of times however given anticipated low need for atrial pacing, decision was made to take the best of the positions. The sheath was then torn away. The lead collar was advanced and anchored into place utilizing #0 silk suture. The leads were then inserted into the appropriate position into the generator. They were then secured with the setscrew provided. The leads and generator were inserted into the pocket with the leads posterior. The subcutaneous tissue was approximated utilizing #2.0 and 3.0 vicryl in an interrupted stitch fashion. The dermal layer was approximated utilizing #4.0 vicryl. The area was cleansed with sterile saline and dried. A sterile 4x4 dressing was applied and the patient was transferred to the post catheterization holding area in stable and satisfactory condition. The patient tolerated the procedure well. Generator Data Nursery Supervisor: [employer] Brand: [id number] Larisa XT DR MRI Model #: [id number] Serial#: [id number] Right Atrial Bipolar Lead Data: Type: Active fixation lead Nursery Supervisor: [employer] Model#: 5076-52 Serial Number: [id number] Right Ventricular Bipolar Lead Data: Type: Active fixation lead Nursery Supervisor: [employer] Model #: 5076-58 Serial #: [id number] Stimulation Thresholds: Right atrial bipolar lead pacing and sensing thresholds Voltage: 3.25 Pulse Width: 1.0 ms Impedance: 456 ohms P-wave sensin.3 mV Right Ventricular bipolar lead pacing and sensing thresholds Pulse Width: 0.4 ms Voltage: 0.5 volts Impedance: 437 ohms R-wave sensin.8 mV Parameter Setting: Pacing mode is DDDR Lower rate 55 bpm Upper rate 130 bpm Impressions: 1. Successful implantation of a dual chamber permanent pacemaker in the left pectoral site. Plan: 1. Routine post procedure care will be instituted as well as outpatient follow- up surveillance.
[2023-03-27 06:53] LABS: Glucose,Whole Blood 135 mg/dL (70-110)
[2023-03-27] MEDS: INSULIN ASPART (NovoLOG) 100 UNIT/ML VIAL SQ SCH ×4 (06:58→21:02)
[2023-03-27] MEDS: PENTOXIFYLLINE 400 MG TABLET.ER PO SCH ×3 (08:00→17:13)
[2023-03-27] MEDS: SODIUM CHLORIDE 0.9% 1,000 ML IV SCH ×4 (08:00→10:59)
[2023-03-27] MEDS ORDERED: ACETAMINOPHEN TAB 325 MG TAB PO PRN (09:48)
--- NOTE | 2023-03-27 10:50 | XR ---
EXAMINATION TYPE: XR chest 1V portable DATE OF EXAM: 03/27/2023 10:30 AM COMPARISON: Chest radiographs from 03/24/2023 TECHNIQUE: XR chest 1V portable Portable AP radiograph of the chest. CLINICAL INDICATION:Male, 77 years old with history of Lead placement check; FINDINGS: Lungs/Pleura: There is no evidence of pleural effusion, focal consolidation, or pneumothorax. Pulmonary vascularity: Unremarkable. Heart/mediastinum: Cardiomediastinal silhouette is enlarged and stable. Atherosclerotic calcificatio ns are seen in the aorta. Two lead cardiac conduction device overlying the left hemithorax with lead tips projecting over the right ventricle and right atrium. Musculoskeletal: No acute osseous pathology. IMPRESSION: Cardiomegaly with interval placement of two lead cardiac conduction device overlying the left hemitho rax with lead tips projecting over the right ventricle and right atrium.
[2023-03-27] MEDS: ATORVASTATIN 10 MG TAB PO SCH (10:58)
[2023-03-27] MEDS: TAMSULOSIN 0.4 MG CAP.ER.24H PO SCH (10:58)
[2023-03-27] MEDS: TIMOLOL 0.5% OPHTH DROPS 5 ML BTL RIGHT EYE SCH (11:00)
[2023-03-27] MEDS: NYSTATIN 100,000 UNIT/GM POWD 15 GM TOPICAL SCH ×3 (11:00→20:00)
[2023-03-27] MEDS: ENOXAPARIN 40 MG/0.4 ML SYRINGE SQ SCH (11:00)
[2023-03-27] MEDS: amLODIPine 2.5 MG TAB PO SCH (11:05)
[2023-03-27 11:40] LABS: Glucose,Whole Blood 154 mg/dL (70-110)
[2023-03-27 14:06] LABS: Basophils % (A) 0 %; Eosinophils % (A) 0 %; HCT 41.9 % (39.0-53.0); HGB 13.9 gm/dL (13.0-17.5); Lymphocytes # (A) 0.5 k/uL (1.0-4.8); Lymphocytes % (A) 5 %; MCH 33.7 pg (25.0-35.0); MCHC 33.3 g/dL (31.0-37.0); MCV 101.3 fL (80.0-100.0); Mean Platelet Volume 8.6; Monocytes # (A) 0.6 k/uL (0-1.0); Monocytes % (A) 6 %; Neutrophils # (A) 8.4 k/uL (1.3-7.7); Neutrophils % (A) 88 %; Platelet Count 113 k/uL (150-450); RBC 4.14 m/uL (4.30-5.90); RDW 12.2 % (11.5-15.5); WBC 9.6 k/uL (3.8-10.6)
[2023-03-27 14:18] LABS: African American GFR (CKD) 76 (>60 ml/min/1.73 sqM); Anion Gap 6 mmol/L; Blood Urea Nitrogen 21 mg/dL (9-20); Calcium 8.2 mg/dL (8.4-10.2); Carbon Dioxide 29 mmol/L (22-30); Chloride 99 mmol/L (98-107); Glucose 245 mg/dL (74-99); Non-African American GFR(CKD) 66 (>60 ml/min/1.73 sqM); Potassium 4.1 mmol/L (3.5-5.1); Sodium 134 mmol/L (137-145)
--- NOTE | 2023-03-27 14:51 | P.PN ---
Subjective Progress Note Date: 03/27/23 This is a 77-year-old gentleman admitted with recurrent syncope-the first episode approximately 2 weeks ago, symptomatic bradycardia, junctional rhythm with heart rate in the 30s. Heart rates currently in the 70s.MAps 90s to 110s. Echocardiogram reported normal LV function, aortic sclerosis. Transvenous pacer placed. Permanent pacemaker pending. Denies chest pain, palpitations or shortness of breath. Maintaining O2 sats in the high 90s on 2 L nasal cannula. 03/27/2023 status post dual chamber permanent pacemaker placement, wearing sling. Tolerated procedure well. Denies chest pain, palpitations or shortness of breath. Telemetry paced. Heart rates 70s to 80s. Denies nausea, vomiting. Feels hungry. Objective - Vital Signs Vital signs: Vital Signs Temp 97.8 F 03/27/23 12:00 Pulse 71 03/27/23 14:00 Resp 16 03/27/23 14:00 BP 113/58 03/27/23 14:00 Pulse Ox 92 L 03/27/23 14:00 FiO2 Intake & Output 03/26/23 03/27/23 03/27/23 18:59 06:59 18:59 Intake Total 620 600 850 Output Total 740 610 350 Balance -120 -10 500 Intake: IV 620 600 370 .9 20 R femoral sheath 120 Invasive Line 3 20 Sodium Chloride 0.9% 1, 350 600 350 000 ml @ 50 mls/hr IV . Q20H [facility] Rx#:[id number] Oral 480 Output: Urine 740 610 350 Other: Voiding Method Indwelling Catheter Indwelling Catheter Indwelling Catheter - Exam PHYSICAL EXAM: VITAL SIGNS: As above GENERAL: Alert and oriented 3, Sitting up in bed, no acute distress. HEENT: Normocephalic Conjunctivae normal. eyes normal. NECK: No JVD. Wearing sling. CARDIOVASCULAR: S1, S2 regular. Positive systolic murmur RESPIRATION: Breath sounds diminished in the bases. ABDOMEN: Soft, nontender . No guarding. +BS. LEGS: No edema. no swelling NERVOUS SYSTEM: Cranial N 2-12 grossly normal. No focal deficits. Strength and sensation grossly intact. Skin: Warm and dry, no rash - Labs CBC & Chem 7: 03/27/23 12:53 03/27/23 12:53 Labs: Abnormal Lab Results - Last 24 Hours (Table) 03/26/23 03/27/23 03/27/23 Range/Units 21:20 06:51 11:39 RBC (4.30-5.90) m/uL MCV (80.0-100.0) fL Plt Count (150-450) k/uL Neutrophils # (1.3-7.7) k/uL Lymphocytes # (1.0-4.8) k/uL Sodium (137-145) mmol/L BUN (9-20) mg/dL Glucose (74-99) mg/dL POC Glucose (mg/dL) 132 H 135 H 154 H (70-110) mg/dL Calcium (8.4-10.2) mg/dL 03/27/23 03/27/23 Range/Units 12:53 12:53 RBC 4.14 L (4.30-5.90) m/uL MCV 101.3 H (80.0-100.0) fL Plt Count 113 L (150-450) k/uL Neutrophils # 8.4 H (1.3-7.7) k/uL Lymphocytes # 0.5 L (1.0-4.8) k/uL Sodium 134 L (137-145) mmol/L BUN 21 H (9-20) mg/dL Glucose 245 H (74-99) mg/dL POC Glucose (mg/dL) (70-110) mg/dL Calcium 8.2 L (8.4-10.2) mg/dL Assessment and Plan Assessment: Syncope secondary to symptomatic bradycardia, status post TVP placement. Status post PPM implantation. Junctional rhythm heart rate in the 30s on admission Acute renal failure secondary to the above, improving Urinary retention, coude' catheter placed per urology Diabetes mellitus, A1c 6.9 Obstructive sleep apnea uses CPAP Plan: Continue on current medication regime ,monitoring and symptomatic treatment. Maintain supportive care. Discharge planning in progress pending final DC recommendations and clearance as per cardiology. The impression and plan of care has been dictated as directed. : I performed a history and examination of this patient, discussed the same with the dictator. I agree with the dictator's note ,documented as a scribe. Any additional findings or plans will be noted.
--- NOTE | 2023-03-27 14:53 | P.PN ---
Subjective Bradycardia The patient is a pleasant 77-year-old gentleman was no significant past medical history of any coronary artery disease or congestive heart failure or any cardiac arrhythmia and the perceived by a pivot maker in the past was brought to the hospital by ambulance after he did have an episode of syncope. The patient was at the [employer] earlier today when he was sitting on the chair and suddenly he lost his consciousness with no prodromal symptoms. He stated that he did have similar episodes 2 weeks ago. Ambulance was called and on the way to the hospital he did have another episode of syncope. No associated or prodromal symptoms. No chest pain or chest discomfort and no shortness of breath and no dizziness or lightheadedness and no feeling of heart racing or fluttering or presyncope or syncope. He underwent further workup in the emergency department. The first troponin came in to be normal. The EKG showed what it seems to be junctional rhythm with RBBB morphology and heart rate in the 30s. I could not appreciate any P waves. The rest of the blood work including CBC and BNP came in to be unremarkable. TSH came in to be unremarkable. At home he was not on any AV chapo xochitl agents. With that being sedated the patient was brought to cardiac computer laboratory technician where he underwent successful placement of transvenous temporary pacemaker from right femoral vein. He would be in the intensive care unit. We'll monitor the heart rate for the next 24-48 hours and avoid any AV chapo xochitl agents and obtain an e chocardiogram. The examination is remarkable for stable blood pressure with a bradycardia and systolic murmur at the right and left upper sternal border 03/25/2023 The patient was seen and evaluated this morning. He is feeling better. As a matter of fact he is overriding the pacemaker was a resting heart rate appeared to be in the 70s. He is in sinus rhythm now. 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 We will perform a bedside EKG for confirmation. The echo is still pending. He is asymptomatic and he is hemodynamically stable. TSH was checked and came in to be unremarkable. 03/27 Patient seen and examined. Patient underwent pacemaker placement yesterday without issues. Currently atrial sensed ventricular paced. Denies any chest pain or pressure. Still has De Anda catheter in. Still feels somewhat debilitated. No lightheadedness. Blood pressures been somewhat borderline. Echocardiogram showed ejection fraction 50-55% Assessment Symptomatic bradycardia s/p dual chamber PPM 03/27 Syncope secondary to bradycardia Junctional rhythm with RBBB morphology Plan Awaiting formal interrogation however appears to be working appropriately. Echo showed ejection fraction 50-55%. Discharge planning and likely is continue De Anda catheter. Stable for transfer out of ICU. Patient feeling debilitated and may need rehab. Objective - Vital Signs Vital signs: Vital Signs Temp 97.8 F 03/27/23 12:00 Pulse 71 03/27/23 14:00 Resp 16 03/27/23 14:00 BP 113/58 03/27/23 14:00 Pulse Ox 92 L 03/27/23 14:00 FiO2 Intake & Output 03/26/23 03/27/23 03/27/23 18:59 06:59 18:59 Intake Total 620 600 850 Output Total 740 610 350 Balance -120 -10 500 Intake: IV 620 600 370 .9 20 R femoral sheath 120 Invasive Line 3 20 Sodium Chloride 0.9% 1, 350 600 350 000 ml @ 50 mls/hr IV . Q20H [facility] Rx#:[id number] Oral 480 Output: Urine 740 610 350 Other: Voiding Method Indwelling Catheter Indwelling Catheter Indwelling Catheter - Labs CBC & Chem 7: 03/27/23 12:53 03/27/23 12:53 Labs: Abnormal Lab Results - Last 24 Hours (Table) 03/26/23 03/27/23 03/27/23 Range/Units 21:20 06:51 11:39 RBC (4.30-5.90) m/uL MCV (80.0-100.0) fL Plt Count (150-450) k/uL Neutrophils # (1.3-7.7) k/uL Lymphocytes # (1.0-4.8) k/uL Sodium (137-145) mmol/L BUN (9-20) mg/dL Glucose (74-99) mg/dL POC Glucose (mg/dL) 132 H 135 H 154 H (70-110) mg/dL Calcium (8.4-10.2) mg/dL 03/27/23 03/27/23 Range/Units 12:53 12:53 RBC 4.14 L (4.30-5.90) m/uL MCV 101.3 H (80.0-100.0) fL Plt Count 113 L (150-450) k/uL Neutrophils # 8.4 H (1.3-7.7) k/uL Lymphocytes # 0.5 L (1.0-4.8) k/uL Sodium 134 L (137-145) mmol/L BUN 21 H (9-20) mg/dL Glucose 245 H (74-99) mg/dL POC Glucose (mg/dL) (70-110) mg/dL Calcium 8.2 L (8.4-10.2) mg/dL
[2023-03-27 16:57] LABS: Glucose,Whole Blood 213 mg/dL (70-110)
[2023-03-27 20:16] LABS: Glucose,Whole Blood 138 mg/dL (70-110)
[2023-03-27] MEDS: INSULIN DETEMIR (LEVEMIR) 100 UNIT/ML SYR SQ SCH (21:00)
[2023-03-28 06:09] LABS: HCT 37.4 % (39.0-53.0); MCH 34.6 pg (25.0-35.0); MCHC 34.8 g/dL (31.0-37.0); MCV 99.6 fL (80.0-100.0); Mean Platelet Volume 8.4; Platelet Count 112 k/uL (150-450); RBC 3.76 m/uL (4.30-5.90); RDW 12.3 % (11.5-15.5); WBC 8.2 k/uL (3.8-10.6)
[2023-03-28 06:26] LABS: African American GFR (CKD) 57 (>60 ml/min/1.73 sqM); Anion Gap 6 mmol/L; Blood Urea Nitrogen 30 mg/dL (9-20); Calcium 8.6 mg/dL (8.4-10.2); Carbon Dioxide 30 mmol/L (22-30); Chloride 98 mmol/L (98-107); Glucose 97 mg/dL (74-99); Non-African American GFR(CKD) 49 (>60 ml/min/1.73 sqM); Potassium 3.9 mmol/L (3.5-5.1); Sodium 134 mmol/L (137-145)
[2023-03-28 07:09] LABS: Glucose,Whole Blood 95 mg/dL (70-110)
[2023-03-28] MEDS: PENTOXIFYLLINE 400 MG TABLET.ER PO SCH (07:09)
[2023-03-28] MEDS: INSULIN ASPART (NovoLOG) 100 UNIT/ML VIAL SQ SCH ×2 (07:11→12:54)
[2023-03-28] MEDS ORDERED: SODIUM CHLORIDE 0.9% 1,000 ML IV SCH (09:45)
[2023-03-28] MEDS: TAMSULOSIN 0.4 MG CAP.ER.24H PO SCH (09:54)
[2023-03-28] MEDS: NYSTATIN 100,000 UNIT/GM POWD 15 GM TOPICAL SCH (09:54)
[2023-03-28] MEDS: ATORVASTATIN 10 MG TAB PO SCH (09:54)
[2023-03-28] MEDS: ENOXAPARIN 40 MG/0.4 ML SYRINGE SQ SCH (09:55)
[2023-03-28] MEDS: TIMOLOL 0.5% OPHTH DROPS 5 ML BTL RIGHT EYE SCH (09:55)
[2023-03-28] MEDS: amLODIPine 2.5 MG TAB PO SCH (09:55)
[2023-03-28 11:01] VITALS: BP 101/51; PULSE 78; RESP 16; TEMP 98.3
--- NOTE | 2023-03-28 12:02 | P.DS ---
Providers Date of admission: 03/24/23 12:13 Expected date of discharge: 03/28/23 Attending physician: Duran Stark MD Consults: 03/24/23 12:13 Consult Physician Urgent Consulting Provider: Kb Murrieta Consult Reason/Comments: Symptomatic bradycardia Do you want consulting provider notified?: Yes 03/24/23 17:00 Consult Physician Urgent Consulting Provider: Cl Genao Consult Reason/Comments: Urinary Retention Do you want consulting provider notified?: Already Contacted Primary care physician: Adrienne Lucas Hospital Course: Syncope secondary to symptomatic bradycardia, status post TVP placement. Status post PPM implantation. Junctional rhythm heart rate in the 30s on admission Acute renal failure secondary to the above, improving Urinary retention, coude' catheter placed per urology, recently discontinued, spontaneously voiding Diabetes mellitus, A1c 6.9 Obstructive sleep apnea uses CPAP Hospital course:This is a 77-year-old gentleman admitted with recurrent syncope- the first episode approximately 2 weeks ago, symptomatic bradycardia, junctional rhythm with heart rate in the 30s. Heart rates currently in the 70s.MAps 90s to 110s. Echocardiogram reported normal LV function, aortic sclerosis. Transvenous pacer placed. Permanent pacemaker pending. Denies chest pain, palpitations or shortness of breath. Maintaining O2 sats in the high 90s on 2 L nasal cannula. 03/27/2023 status post dual chamber permanent pacemaker placement, wearing sling. Tolerated procedure well. Denies chest pain, palpitations or shortness of breath. Telemetry paced. Heart rates 70s to 80s. Denies nausea, vomiting. Feels hungry. Significant clinical improvement. Denies chest pain, palpitations or shortness of breath. Telemetry paced, heart rates maintained in the 60s to 70s. Sitting up in chair, no acute distress.De Anda catheter removed yesterday, spontaneously voiding. BUN increased to 30, creatinine up to 1.38. IV fluids increased for the next 4 hours then DC home with follow-up BMP on Sunday. Evaluated by PT, recommending home care. Patient will be discharged home today in a stable condition with guarded prognosis pending final DC recommendations and clearance per cardiology. The impression and plan of care has been dictated as directed. : I performed a history and examination of this patient, discussed the same with the dictator. I agree with the dictator's note ,documented as a scribe. Any additional findings or plans will be noted. Patient Condition at Discharge: Stable Plan - Discharge Summary Discharge Rx Participant: No New Discharge Prescriptions: New Tamsulosin [Flomax] 0.4 mg PO PC-BRKFST #30 cap Nystatin 100,000 Unit/gm Powd [Mycostatin Powder] 1 applic TOPICAL TID each amLODIPine [Norvasc] 2.5 mg PO DAILY #30 tab Acetaminophen Tab [Tylenol] 650 mg PO Q6HR PRN tab PRN Reason: Mild Pain (Scale 1 To 3) Continue Rosuvastatin Calcium 5 mg PO DAILY Insulin Glargine,Hum.rec.anlog [Lantus Solostar Pen] 10 units SQ HS Glimepiride [Amaryl] 4 mg PO BID #0 Timolol 0.5% Ophth Gel Forming [Timoptic-Xe 0.5% Gel Form] 1 applic RIGHT EYE DAILY Pentoxifylline [TRENtal] 400 mg PO TID-W/MEALS Linagliptin [Tradjenta] 5 mg PO DAILY Cholecalciferol [Vitamin D3 (25 Mcg = 1000 Iu)] 50 mcg PO DAILY Discharge Medication List Cholecalciferol [Vitamin D3 (25 Mcg = 1000 Iu)] 50 mcg PO DAILY 03/24/23 [History] Insulin Glargine,Hum.rec.anlog [Lantus Solostar Pen] 10 units SQ HS 03/24/23 [History] Linagliptin [Tradjenta] 5 mg PO DAILY 03/24/23 [History] Pentoxifylline [TRENtal] 400 mg PO TID-W/MEALS 03/24/23 [History] Rosuvastatin Calcium 5 mg PO DAILY 03/24/23 [History] Timolol 0.5% Ophth Gel Forming [Timoptic-Xe 0.5% Gel Form] 1 applic RIGHT EYE DAILY 03/24/23 [History] Acetaminophen Tab [Tylenol] 650 mg PO Q6HR PRN tab 03/28/23 [Rx] Glimepiride [Amaryl] 4 mg PO BID #0 03/28/23 [Rx] Nystatin 100,000 Unit/gm Powd [Mycostatin Powder] 1 applic TOPICAL TID each 03/28/23 [Rx] Tamsulosin [Flomax] 0.4 mg PO PC-BRKFST #30 cap 03/28/23 [Rx] amLODIPine [Norvasc] 2.5 mg PO DAILY #30 tab 03/28/23 [Rx] Follow up Appointment(s)/Referral(s): [facility], [NON-STAFF] - 1 Week Duran Stark MD [STAFF PHYSICIAN] - 3 Days Alex Cho DO [STAFF PHYSICIAN] - 1 Week Ambulatory/Diagnostic Orders: Basic Metabolic Panel [LAB.AMB] Time Frame: 3 Days, Location: None Selected Activity/Diet/Wound Care/Special Instructions: encourage fluid intake . Have patient Obtain his O.P. BMP this Sunday03/30/23 PATIENT EDUCATION MATERIAL Instructions following a heart rhythm device implant. 1. Keep dressing DRY for 5 DAYS. You may cover the area with Saran or Cling Wrap, prior to a shower. 2. The dressing will be removed in the Device Clinic at [facility]. Absorbable sutures were used to close the wound. 3. Avoid raising the left arm above the shoulder level. 4 week restriction 4. Avoid arm movements, like backscratching, rubbing the head, or pulling on a cord. 4 weeks restriction 5. Gentle range of motion movements of the shoulder, closest to the incision should be performed to avoid a frozen shoulder. (Pendulum exercises of the shoulder) 6. The opposite arm may be used freely. 7. Avoid driving for 7 days. 8. Avoid activities such as golfing, swimming, weed whacking, lifting more than 10 pounds weight, bowling, gymnastics and weight training/lifting. (6 weeks restriction) 9. Activities such as wood chopping with an axe, pull-ups in the gymnasium, power lifting, arc-welding, being close to home induction cooktops will always be a problem. 10. Arm sling is only a reminder not to raise the arm above the head. You do not need to keep the arm completely immobilized. Your free to move the arm and use it and for normal activities. In case of any problems, please call [facility], Amol Gray, @ [phone], Attention: Device Clinic Device clinic follow-up in 5 days Discharge Disposition: HOME WITH HOME HEALTH SERVICES
[2023-03-28 12:05] LABS: Glucose,Whole Blood 146 mg/dL (70-110)
== END 2023-03-28 15:02 | disposition home health service (06) | DRG 243 ==
LOC: EC 11:14 → 2SICU 12:13 → 6NMEDSUR 03-28 08:54
PROVIDERS: ADMIT Family Medicine; ATTEND Family Medicine
PROC: 5A1223Z Performance of Cardiac Pacing, Continuous (ICD-10-PCS; 2023-03-24)
PROC: 0T9B70Z Drainage of Bladder with Drainage Device, Via Natural or Artificial Opening (ICD-10-PCS; 2023-03-24)
PROC: 02HK3JZ Insertion of Pacemaker Lead into Right Ventricle, Percutaneous Approach (ICD-10-PCS; principal; 2023-03-26 14:30)
PROC: 0JH606Z Insertion of Pacemaker, Dual Chamber into Chest Subcutaneous Tissue and Fascia, Open Approach (ICD-10-PCS; principal; 2023-03-26 14:30)
PROC: 02H63JZ Insertion of Pacemaker Lead into Right Atrium, Percutaneous Approach (ICD-10-PCS; principal; 2023-03-26 14:30)
DX: I44.2 Atrioventricular block, complete (principal); N17.9 Acute kidney failure, unspecified; R00.1 Bradycardia, unspecified; R33.8 Other retention of urine; R53.81 Other malaise; I70.0 Atherosclerosis of aorta; I45.3 Trifascicular block; G47.33 Obstructive sleep apnea (adult) (pediatric); F41.9 Anxiety disorder, unspecified; E11.9 Type 2 diabetes mellitus without complications; Z79.84 Long term (current) use of oral hypoglycemic drugs
CPT/HCPCS: 33208; 33210; 36415; 70450; 71045; 71046; 80048; 80053; 83036; 83735; 84443; 84484; 85025; 85027; 85610; 85730; 93005; 93306; 99285